=== PATIENT | male | born 1950 | race Caucasian/White ===

== ENCOUNTER → 2024-09-07 | Outpatient (CLI) | payer BC, MEDICARE | END | disposition home or self-care (01) | LOC: LABWHC1 15:13 | PROVIDERS: ATTEND Orthopaedic Surgery | DX: M25.551 Pain in right hip (principal); Z96.641 Presence of right artificial hip joint; T84.84XA Pain due to internal orthopedic prosthetic devices, implants and grafts, initial encounter | CPT/HCPCS: 36415; 85379; 85652; 86140 ==